=== PATIENT | male | born 1995 | race Caucasian/White ===

== ENCOUNTER 2023-09-21 20:42 | Emergency (ER) | payer OTHER ==
[2023-09-21 20:49] VITALS: BP 122/81; PULSE 92; RESP 20; TEMP 98.5; BMI 43.7
[2023-09-21] MEDS ORDERED: CYCLOBENZAPRINE HCL 10 MG TABLET (FP) ONE (22:25)
[2023-09-21] MEDS ORDERED: LIDOCAINE 4% PATCH TP ONE (22:25)
[2023-09-21] MEDS ORDERED: KETOROLAC TROMETHAMINE 30 MG/1 ML VIAL ONE (22:26)
[2023-09-21] MEDS ORDERED: ACETAMINOPHEN 500 MG TABLET (FP) ONE (22:26)
[2023-09-21] MEDS: LIDOCAINE PATCH REMOVAL MC SCH (22:28)
[2023-09-21] MEDS: CYCLOBENZAPRINE HCL 10 MG TABLET (FP) PO ONE (22:28)
[2023-09-21] MEDS: KETOROLAC TROMETHAMINE 30 MG/1 ML VIAL IM ONE (22:28)
[2023-09-21] MEDS: LIDOCAINE 4% PATCH TP ONE (22:29)
[2023-09-21] MEDS: ACETAMINOPHEN 500 MG TABLET (FP) PO ONE (22:29)
[2023-09-21 22:47] LABS: URINE APPEARANCE CLEAR; URINE BILIRUBIN NEGATIVE (NEGATIVE); URINE COLOR YELLOW; URINE GLUCOSE (UA) NEGATIVE (NEGATIVE); URINE KETONE TRACE (NEGATIVE); URINE LEUK ESTERASE NEGATIVE (NEGATIVE); URINE NITRITE NEGATIVE (NEGATIVE); URINE PROTEIN NEGATIVE (NEGATIVE); URINE UROBILINOGEN 0.2 mg/dL (0.2-1.0)
== END 2023-09-21 23:44 | disposition home or self-care (01) ==
LOC: JERFT 20:42
PROC: 3E0133Z Introduction of Anti-inflammatory into Subcutaneous Tissue, Percutaneous Approach (ICD-10-PCS; principal; 2023-09-21)
DX: G72.49 Other inflammatory and immune myopathies, not elsewhere classified (principal); M54.50 Low back pain, unspecified; R20.2 Paresthesia of skin
CPT/HCPCS: 72100-TC-FY; 81003; 87086; 96372; 99284-25